=== PATIENT | female | born 1985 | race African-American/Black ===

== ENCOUNTER 2021-09-09 11:17 | Outpatient (CLI) | payer BC, OTHER | END 2021-09-09 11:18 | disposition home or self-care (01) | LOC: CSHLAB 11:17 | PROVIDERS: ATTEND Family Medicine | DX: Z20.822 Contact with and (suspected) exposure to COVID-19 (principal) | CPT/HCPCS: 87811 ==

== ENCOUNTER 2021-09-13 19:30 | Inpatient (IN) | payer BC, OTHER ==
[2021-09-14] MEDS ORDERED: Methylergonovine 0.2 MG/ML VIAL IM PRN (00:27)
[2021-09-14] MEDS ORDERED: HYDROcodone/Acetaminophen 5/325 mg Tablet PO PRN ×2 (00:27→15:06)
[2021-09-14] MEDS ORDERED: Diphenoxylate HCl/Atropine Tablet PO PRN (00:27)
[2021-09-14] MEDS ORDERED: Carboprost 250 MCG/ML AMP IM PRN (00:27)
[2021-09-14] MEDS ORDERED: Misoprostol 200 MCG TAB PR PRN (00:27)
[2021-09-14] MEDS ORDERED: Promethazine HCl 25 MG/ML VIAL IM PRN ×3 (00:27→15:06)
[2021-09-14] MEDS ORDERED: Lidocaine 1% (PF) 30 ML VIAL SC PRN (00:27)
[2021-09-14] MEDS ORDERED: Ibuprofen 800 MG TAB PO PRN (00:27)
[2021-09-14] MEDS ORDERED: hydrALAZINE 20 MG/ML VIAL SLOW IVP PRN ×2 (00:27→15:06)
[2021-09-14] MEDS ORDERED: Ondansetron PF 4 MG/2 ML Vial IVP PRN ×3 (00:27→15:06)
[2021-09-14 00:58] VITALS: BMI 29.2
[2021-09-14] MEDS ORDERED: Penicillin G Potassium 5 MILL.UNITS in Sodium Chloride 0.9% 100 ML IVPB SCH (01:00)
[2021-09-14] MEDS ORDERED: NS w/ Oxytocin 30 units 500 ML IV SCH ×2 (01:00)
[2021-09-14] MEDS: Misoprostol 100 MCG TAB PO SCH ×3 (01:35→09:04)
[2021-09-14] MEDS: Penicillin G 2.5 MILL.units 2.5 MILL.UNITS in Premix Bag 1 BAG IVPB SCH ×2 (06:10→10:08)
[2021-09-14 07:18] LABS: Hemoglobin 7.6 g/dL (12.0-15.5); White Blood Cell (WBC) Count 11.5 10x3/uL (3.5-10.5)
[2021-09-14 07:19] LABS: Mean Corpuscular HGB CONC 30.2 g/dL (32.0-36.0); Mean Corpuscular Volume 66.3 fl (81.6-98.3); Mean Platelet Volume 11.3 fl (7.4-10.4); Platelet Count 276 10x3/uL (150-450)
[2021-09-14] MEDS: Lactated Ringer's 1,000 ML IV SCH ×2 (07:20→09:12)
[2021-09-14] MEDS ORDERED: Fentanyl 2 mcg/Bup 0.1% Cadd 100 ML ONE (08:18)
[2021-09-14 08:23] LABS: Syphilis Antibody Nonreactive (Nonreactive); Syphilis Antibody Index 0.03 S/CO (<1.00 Non-Reactive)
[2021-09-14 08:24] LABS: HBSAg Index 0.17 S/CO (0-0.99); Hep B Surf Ag Non-Reactive S/CO (NonReactive)
[2021-09-14] MEDS ORDERED: Lactated Ringer's 500 ML IV PRN (09:11)
[2021-09-14] MEDS ORDERED: Acetaminophen 325 MG TAB PO PRN (09:11)
[2021-09-14] MEDS ORDERED: Naloxone HCl 0.4 mg/ml Vial IVP PRN ×2 (09:11)
[2021-09-14] MEDS ORDERED: diphenhydrAMINE 50 MG/ML VIAL IVP PRN (09:11)
[2021-09-14] MEDS ORDERED: Moisturizing Cream (Eucerin) 113 GM JAR TOP PRN (09:11)
[2021-09-14] MEDS ORDERED: ePHEDrine Sulfate 50 MG/10 ML VIAL SLOW IVP PRN (09:11)
[2021-09-14] MEDS ORDERED: Fentanyl 2 mcg/Bupivacaine 0.1% Cassette 100 ML EPIDURAL SCH (09:15)
[2021-09-14] MEDS ORDERED: Communication Order-Pharmacy FS SCH (09:15)
[2021-09-14] MEDS ORDERED: Tranexamic Acid 1,000 MG/10 ML VIAL ONE (10:05)
[2021-09-14] MEDS ORDERED: Methylergonovine 0.2 MG/ML VIAL ONE (10:06)
[2021-09-14] MEDS ORDERED: diphenhydrAMINE 25 MG CAP PO PRN (15:06)
[2021-09-14] MEDS ORDERED: Benzocaine-Menthol 82.5 ML CAN TOP PRN (15:06)
[2021-09-14] MEDS ORDERED: Milk Of Magnesia 30 ML UDCUP PO PRN (15:06)
[2021-09-14] MEDS ORDERED: Boostrix 0.5 ML (Tdap) VIAL IM ONE (15:06)
[2021-09-14] MEDS ORDERED: Bisacodyl 10 MG SUPP PR PRN (15:06)
[2021-09-14] MEDS: Ferrous Sulfate 325 MG TAB PO SCH (16:35)
[2021-09-14] MEDS: HYDROcodone/Acetaminophen 5/325 mg Tablet PO PRN (17:09)
[2021-09-14] MEDS: Ibuprofen 800 MG TAB PO SCH (21:39)
[2021-09-14] MEDS: Docusate 100 MG CAP PO SCH (21:39)
[2021-09-15] MEDS: Penicillin G 2.5 MILL.units 2.5 MILL.UNITS in Premix Bag 1 BAG IVPB SCH (02:19)
[2021-09-15] MEDS: Ibuprofen 800 MG TAB PO SCH ×3 (05:53→21:31)
[2021-09-15] MEDS: Ferrous Sulfate 325 MG TAB PO SCH ×2 (07:29→17:30)
[2021-09-15] MEDS: Docusate 100 MG CAP PO SCH ×2 (07:29→21:31)
[2021-09-15] MEDS: Prenatal Vitamin 1 TAB PO SCH (07:29)
[2021-09-15] MEDS: HYDROcodone/Acetaminophen 5/325 mg Tablet PO PRN (10:53)
[2021-09-16] MEDS: Ibuprofen 800 MG TAB PO SCH ×2 (05:36→13:49)
[2021-09-16] MEDS: Prenatal Vitamin 1 TAB PO SCH (08:57)
[2021-09-16] MEDS: Docusate 100 MG CAP PO SCH (08:57)
[2021-09-16] MEDS: Ferrous Sulfate 325 MG TAB PO SCH (08:57)
[2021-09-16 11:43] VITALS: BP 118/71; TEMP 98.6
[2021-09-16] MEDS: HYDROcodone/Acetaminophen 5/325 mg Tablet PO PRN (13:53)
[2021-09-16] MEDS ORDERED: ePHEDrine Sulfate 50 MG/10 ML VIAL SLOW IVP ONE (15:59)
[2021-09-16] MEDS ORDERED: Bupivacaine PF 0.5% 30 ML VIAL FS ONE (15:59)
== END 2021-09-16 16:00 | disposition home or self-care (01) | DRG 807 ==
LOC: CSHLD 09-14 00:23 → CSHPED 09-14 15:30
PROVIDERS: ADMIT Family Medicine; ATTEND Family Medicine
PROC: 10E0XZZ Delivery of Products of Conception, External Approach (ICD-10-PCS; principal; 2021-09-14)
PROC: 0KQM0ZZ Repair Perineum Muscle, Open Approach (ICD-10-PCS; 2021-09-14)
PROC: 10907ZC Drainage of Amniotic Fluid, Therapeutic from Products of Conception, Via Natural or Artificial Opening (ICD-10-PCS; 2021-09-14)
PROC: 3E0P7VZ Introduction of Hormone into Female Reproductive, Via Natural or Artificial Opening (ICD-10-PCS; 2021-09-14)
DX: O99.824 Streptococcus B carrier state complicating childbirth (principal); Z37.0 Single live birth; Z3A.39 39 weeks gestation of pregnancy; Z88.8 Allergy status to other drugs, medicaments and biological substances; O70.1 Second degree perineal laceration during delivery
CPT/HCPCS: 36415; 51702; 85027; 86780; 86850; 86900; 86901; 87340; J2405; J2540; J2590; J7120